=== PATIENT | female | born 1975 | race Caucasian/White ===

== ENCOUNTER 2016-04-19 10:31 | Inpatient (IN) | payer BC ==
--- NOTE | ~2016-04-19 | OP ---
Record Of Operation [address] [id number] [place]. [address] NAME: KRISTEN DILL : 79 STATUS : ADM IN PAT#: [id number] AGE: 40 ADM/REG DATE : 04/19/16 MR#: [id number] REPORT SERV DATE: 04/19/16 DICTATED BY: NEVAEH DOTY DATE: 04/19/16 REPORT STATUS : Draft TRANSCRIBED BY: MODL DATE: 04/19/16 DATE OF PROCEDURE: 04/19/2016 PREOPERATIVE DIAGNOSES: 1. Small bowel obstruction. 2. Peritonitis. POSTOPERATIVE DIAGNOSES: 1. Small bowel obstruction. 2. Peritonitis. 3. Cecal volvulus with ischemia. 4. Meckel's diverticulum. PROCEDURE: 1. Ileocecectomy with stapled [id number] ileocolic anastomosis. 2. Stapled resection of Meckel's diverticulum. SURGEONS: Nevaeh Doty M.D. CHIEF INFORMATICS OFFICER: Ceel. ANESTHESIA: General. ESTIMATED BLOOD LOSS: 50 mL. IV FLUIDS: 1 L. SPECIMEN: 1. Cecal volvulus. 2. Meckel's diverticulum. COMPLICATIONS: None. BRIEF HISTORY: Ms Dill is a 40-year-old woman who was transferred from [facility] with evidence of a small-bowel obstruction with possible closed loop and peritonitis. Exploratory laparotomy was recommended with bowel resection. Procedure with the risks including bleeding, infection, anastomotic leak, hernia formation, abscess were all explained. She agreed to proceed. DESCRIPTION OF PROCEDURE: After consent was obtained, she was taken to the operating room and placed in the supine position on the operating table. General endotracheal anesthesia administered. The abdomen was then prepped and draped in normal sterile fashion. Preoperative antibiotics were administered. SCDs were placed. Time-out was performed. We began the midline laparotomy incision using a 10 blade scalpel. Electrocautery was used to dissect through the subcutaneous tissues to the fascia. Fascia was incised and opened throughout the length of the incision. We inspected small intestine, it was dilated, but Record Of Operation [id number] [place]. [address] NAME: KRISTEN DILL : 79 STATUS : ADM IN PAT#: [id number] AGE: 40 ADM/REG DATE : 04/19/16 MR#: [id number] REPORT SERV DATE: 04/19/16 DICTATED BY: NEVAEH DOTY [place] DATE: 04/19/16 REPORT STATUS : Draft TRANSCRIBED BY: MODElenita DATE: 04/19/16 not frankly ischemic. We then palpated in the left upper quadrant and identified a large dilated loop of bowel. This was reduced into the field and was found to be a cecal volvulus with ischemia. It was not perforated. We had to manually reduce the volvulus in order to obtain appropriate visualization for resection. We gave her an amp of bicarb. We then made a window in the distal ilium just proximal to the area of ischemia and divided using a NIKI stapler. We then made a window at the proximal ascending colon just distal to the area of cecal volvulus and then divided this using a NIKI 75 stapler. We then used the ligature to divide the mesentery and passed the specimen off the field. We then ran the small bowel and identified Meckel diverticulum, which was not involved in this process. We elected to resect it by doing a parallel stapled excision and then oversewed the staple line using 2-0 silk sutures. We then created our anastomosis. We placed the bowel in a wyqb-ol-dzrw functional end-to-end configuration and placed stay sutures of 2-0 silk both proximally and distally. We placed bowel clamps and then towels for control of contamination. We removed both antimesenteric staple lines and placed a NIKI 75 stapler within both bowel lumens and fired the stapler marrying the two ends. We identified the internal staple line to ensure that there was no bleeding. We then approximated the common enterotomy with Allis clamps and closed this using a TA 60 stapler. We then oversewed our staple line using interrupted 2-0 silk sutures and then we closed our mesenteric defect using interrupted vxxtyi-ap-pyxze 2-0 silk sutures. Nice palpable anastomosis. We then replaced it into the abdomen and tucked into the right lower quadrant as well as the remaining portion of the bowel. We irrigated all four quadrants using sterile saline until clear. We replaced the omentum back over the top of the bowel and palpated the NG tube within the stomach. We then closed the fascia using interrupted #1 PDS sutures. Subcutaneous tissues were irrigated with sterile saline. Skin was closed using price. The abdomen was cleaned and sterile dressing was applied. The patient tolerated the procedure well. She was extubated in the operating room and sent to the recovery room in stable condition. WG/MODL Nevaeh Doty MD / [id number] CC: Nevaeh Doty MD
--- NOTE | ~2016-04-19 | HP ---
History And Physical [facility] [address] [place]. [address] NAME: KRISTEN DILL : 79 STATUS : ADM IN [facility]#: [id number] AGE: 40 ADM/REG DATE : 04/19/16 MR#: [id number] REPORT SERV DATE: 04/19/16 DICTATED BY: NEVAEH DOTY DATE: 04/19/16 REPORT STATUS : Draft TRANSCRIBED BY: MODL DATE: 04/19/16 DATE OF ADMISSION: 04/19/2016 CHIEF COMPLAINT: Severe abdominal pain and vomiting. HISTORY OF PRESENT ILLNESS: This is an otherwise healthy, 40-year-old female, who woke up at midnight with the urge to defecate. She had a bowel movement and then stated that she had severe onset of abdominal pain accompanied by severe nausea and then projectile emesis, which was intractable. The patient denies any fevers or other precipitating symptoms. She has never had prior similar symptoms, whatsoever. Again, her last normal bowel movement at midnight and has had progressive pain, which has been intractable to narcotic pain medications ever since. She presented to the emergency room at an outside hospital and was found to have a physical exam, labs as well as imaging consistent with a closed loop small bowel obstruction of unknown etiology and was transferred to [facility] for surgical evaluation. PAST MEDICAL HISTORY: Includes anxiety. PAST SURGICAL HISTORY: None. MEDICATIONS: Include vitamin D supplement and Xanax. ALLERGIES: NO KNOWN DRUG ALLERGIES. SOCIAL HISTORY: The patient is and has three young boys and otherwise denies any tobacco, alcohol, or recreational street drug use. REVIEW OF SYSTEMS: A comprehensive review of systems was performed and was negative except as noted in the HPI. PHYSICAL EXAMINATION: VITAL SIGNS: The patient is tachycardic but with a regular rhythm. Otherwise, her vital signs were stable. GENERAL: This is a well-developed, well-nourished female, appearing her stated age who appears to be in significant distress from the pain. She is lying in the bed and is somewhat sedated due to the amount of narcotic pain medication she received in outside hospital. HEENT: Normocephalic, atraumatic. Pupils are equal, round, reactive to light. Extraocular movements and cranial 2 through 12 are grossly intact. Her nares are patent and there is an NG tube in place in one of her nares. Her mucous membranes are dry. There is no obvious obstruction of her oropharynx. NECK: Supple. Trachea is midline. CARDIOVASCULAR: She is tachycardic but with a regular rhythm. No murmurs, rubs, or gallops. RESPIRATORY: Her lungs are clear to auscultation bilaterally. No rhonchi. No wheeze. ABDOMEN: Soft and diffusely tender to palpation with diffuse rebound consistent with History And Physical [address] [address] NAME: KRISTEN DILL : 79 STATUS : ADM IN PAT#: [id number] AGE: 40 ADM/REG DATE : 04/19/16 MR#: [id number] REPORT SERV DATE: 04/19/16 DICTATED BY: NEVAEH DOTY DATE: 04/19/16 REPORT STATUS : Draft TRANSCRIBED BY: ARIANNA DATE: 04/19/16 generalized peritonitis. I do not appreciate any masses, pulsatile or otherwise. EXTREMITIES: The patient is able to move all four of her extremities equally. NEUROLOGIC: She has no focal neurological defects. She does has 2+ bilateral radial as well as dorsalis pedis pulses, which are palpable. LABORATORY DATA: White blood cells 19.3, hemoglobin 13.5, hematocrit 39.7, platelets of 218. Sodium 138, potassium 3.6, chloride 100, CO2 19, BUN 10, creatinine 0.63, glucose of 177, albumin 4.4, total protein 7.4, alkaline phosphatase 47, AST 24, ALT 25, total bilirubin is 0.2. She has an anion gap of 22.6. There is no lactate but this is suggestive of possible elevated lactate. Lipase is 22, and a CRP is less than 0.4. CT performed at the outside hospital shows a decompressed stomach, as well as a decompressed colon, and a decompressed terminal ileum. There is a markedly distended loop of small bowel within the left upper quadrant measuring up to 10 cm that appears to be twisting on the mesenteric pedicle causing a closed loop obstruction. There is a considerable mesenteric edema in this area, but no pneumatosis intestinalis is noted. There is a small amount of dense free peritoneal fluid in the cul-de-sac measuring 7.5 x 5 cm. Otherwise, there are no clinically significant findings. ASSESSMENT AND PLAN: A 40-year-old female, appears to have a closed loop obstruction caused by twisting on the mesenteric pedicle of this loop of small bowel of unknown etiology. Regardless the patient currently has a surgical abdomen and will proceed to the operating room for exploratory laparotomy, possible bowel resection. Her was at the bedside, and I discussed with him in detail. Risks, benefits, and alternatives to surgery, including but not limited to, bleeding, infection, damage to the surrounding structures, possible hernia formation, possible leak at anastomosis. Also stated that she had no real alternatives to surgical intervention as this is the treatments available for the problems she has at this time. This patient was seen in conjunction with Dr. Doty, the attending who agrees with the plan. Additionally, the patient appears to be somewhat under resuscitated and we will continue this resuscitation process, so we will not hold her trip to the operating room, and this will be done concurrently with her operation DICTATED BY: Amelia Oakley MD SE/MODL Nevaeh oDty MD / [id number] CC: Nevaeh Doty MD
--- NOTE | ~2016-04-19 | DS ---
Discharge Summary [facility] [address] [place]. [address] NAME: KRISTEN DILL : 79 STATUS : DIS IN PAT#: [id number] AGE: 40 ADM/REG DATE : 04/19/16 MR#: [id number] REPORT SERV DATE: 05/01/16 DICTATED BY: NEVAEH DOTY DATE: 05/01/16 REPORT STATUS : Draft TRANSCRIBED BY: MODL DATE: 05/01/16 Data Collection from hospitalization DISCHARGE DIAGNOSES: 1. Small bowel obstruction. 2. Peritonitis. 3. Cecal volvulus with ischemia. 4. Meckel's diverticulum. 5. Anxiety. CONSULTATIONS: None. PROCEDURES PERFORMED: Ileocecectomy with stapled [id number]-hq-pgva ileocolic anastomosis, stapled resection of Meckel's diverticulum on 04/19/2016. PATHOLOGY: Ileum and cecum, ileocecectomy - ischemic injury secondary to cecal volvulus. Margins of resection are viable. A few benign lymph nodes were found. Small bowel diverticulum excision - Meckel's diverticulum. MEDICATIONS: Celexa 20 mg daily, Percocet 5/325 one to two tablets every four hours as needed, and vitamin D one capsule daily. CONDITION AT DISCHARGE: Stable. DISPOSITION: The patient was discharged home on a regular diet with activities as instructed. She would follow up with Dr. Nevaeh Doty on 04/29/2016 and 05/14/2016. HOSPITAL COURSE: This is a 40-year-old female who was transferred from [facility] with evidence of a small bowel obstruction with possible closed loop and peritonitis. Treatment options were discussed and it was elected to proceed with surgical intervention. She was admitted to the hospital at this time for further evaluation and treatment. Upon admission, she was taken to the operating room where she underwent the above-mentioned procedure. She tolerated this well, and there were no complications. On postop day #1, she did complain of some abdominal muscle spasms. She was not passing flatus. She tried to walk to the restroom, but had severe dizziness. She was able to use the bedside commode. NG tube remained in place. IV fluids were continued. Robaxin was started for muscle spasms. On 04/21/2016, she was able to get up and ambulate to the restroom. She had undergone one straight catheterization. Her T-max was 99.7. Her dressings were removed. Her incision was clean, dry, and intact. The NG tube remained in place. She was being given popsicles and ice. The LICENSED MORTICIAN continued. We encouraged her to ambulate in the [place]. On 04/22/2016, the NG tube was removed. She had no nausea. She did tolerate sips of clear liquids. She was getting up to take a shower. Over the next couple of days, discharge planning was performed. She was tolerating liquids. She was passing flatus. The LICENSED MORTICIAN was discontinued and she was placed on oral medications. On 04/24/2016, she did have a bowel movement. Her pathology results were benign. Her abdomen was soft. Her wound appeared clean. Discharge instructions were given. Due to her improved and stable condition, she was discharged home with the above-stated instructions. Discharge Summary [id number] [place]. [address] NAME: KRISTEN DILL : 79 STATUS : DIS IN PAT#: [id number] AGE: 40 ADM/REG DATE : 04/19/16 MR#: [id number] REPORT SERV DATE: 05/01/16 DICTATED BY: NEVAEH DOTY DATE: 05/01/16 REPORT STATUS : Draft TRANSCRIBED BY: ARIANNA DATE: 05/01/16 Information collected by: Mindy Ramon I submit the above information as my discharge summary. SOLE/ARIANNA Nevaeh Doty MD / [id number] CC: MD Gadiel De M.D.
[2016-04-19 13:02] LABS: BASOPHILS 0.1 %; BASOPHILS ABSOLUTE 0.02 10/3/uL (0.0-0.16); EOSINOPHILS 0 %; HEMOGLOBIN 14.9 g/dL (12.0-16.0); IMMATURE GRANULOCYTES 0.2 %; IMMATURE GRANULOCYTES ABSOLUTE 0.04 10/3/uL (0.0-0.11); LYMPHOCYTES 5.6 %; LYMPHOCYTES ABSOLUTE 0.92 10/3/uL (0.67-4.30); MEAN CORPUS HGB CONC 33.9 g/dL (32.0-36.0); MEAN CORPUSCULAR HEMOGLOB 29.5 pg (26.0-34.0); MEAN CORPUSCULAR VOLUME 87.1 fL (80-100); MEAN PLATELET VOLUME 11.5 fL (9.2-13.0); MONOCYTES 2.6 %; MONOCYTES ABSOLUTE 0.42 10/3/uL (0.21-1.20); NEUTROPHILS 91.5 %; NEUTROPHILS ABSOLUTE 14.95 10/3/uL (2.02-8.40); PLATELET COUNT 185 10/3/uL (150-400); RBC DISTRIBUTION WIDTH 12.6 % (12.0-16.0); RED CELL COUNT 5.05 10/6/uL (4.0-5.6); WHITE BLOOD CELLS 16.4 10/3/uL (4.5-10.5)
[2016-04-19 13:03] LABS: MANUAL DIFF NO %
[2016-04-19 13:12] LABS: INTERNATIONAL NORMAL RATI 1.1 UNITS (-); PARTIAL THROMBO TIME 25.3 SEC (22.5-37.2); PROTIME (NOT ORD) 13.8 SEC (12.0-14.5)
[2016-04-19 13:15] LABS: BUN (BLOOD UREA NITROGEN) 9 MG/DL (6-23); CALCIUM, SERUM 8.6 MG/DL (8.5-10.4); CHLORIDE, SERUM 107 MMOL/L (96-112); CO2 (CARBON DIOXIDE) 20 MMOL/L (24-34); GFR AFRICAN AMERICAN 108 ML/MIN (>=60); GFR NON AFRICAN AMERICAN 94 ML/MIN (>=60); GLUCOSE, SERUM 128 MG/DL (60-99); POTASSIUM, SERUM 4.6 MMOL/L (3.5-5.3); SODIUM, SERUM 139 MMOL/L (135-148)
[2016-04-19] MEDS ORDERED: CELEXA20 PO (17:01)
[2016-04-19] MEDS ORDERED: VITAMIN D PO (17:01)
[2016-04-20 05:24] LABS: BASOPHILS 0.1 %; BASOPHILS ABSOLUTE 0.02 10/3/uL (0.0-0.16); EOSINOPHILS 0 %; HEMATOCRIT 40.8 % (36.0-48.0); HEMOGLOBIN 13.8 g/dL (12.0-16.0); IMMATURE GRANULOCYTES 0.2 %; IMMATURE GRANULOCYTES ABSOLUTE 0.03 10/3/uL (0.0-0.11); LYMPHOCYTES 5.7 %; LYMPHOCYTES ABSOLUTE 0.78 10/3/uL (0.67-4.30); MEAN CORPUS HGB CONC 33.8 g/dL (32.0-36.0); MEAN CORPUSCULAR HEMOGLOB 30.3 pg (26.0-34.0); MEAN CORPUSCULAR VOLUME 89.5 fL (80-100); MEAN PLATELET VOLUME 11.6 fL (9.2-13.0); MONOCYTES ABSOLUTE 1.24 10/3/uL (0.21-1.20); NEUTROPHILS ABSOLUTE 11.64 10/3/uL (2.02-8.40); PLATELET COUNT 197 10/3/uL (150-400); RBC DISTRIBUTION WIDTH 12.8 % (12.0-16.0); RED CELL COUNT 4.56 10/6/uL (4.0-5.6); WHITE BLOOD CELLS 13.7 10/3/uL (4.5-10.5)
[2016-04-20 05:36] LABS: MANUAL DIFF NO %
[2016-04-20 05:37] LABS: BUN (BLOOD UREA NITROGEN) 9 MG/DL (6-23); CALCIUM, SERUM 8.3 MG/DL (8.5-10.4); CHLORIDE, SERUM 104 MMOL/L (96-112); CREATININE 0.85 MG/DL (0.55-1.02); GFR AFRICAN AMERICAN 101 ML/MIN (>=60); GFR NON AFRICAN AMERICAN 87 ML/MIN (>=60); GLUCOSE, SERUM 108 MG/DL (60-99); POTASSIUM, SERUM 4.4 MMOL/L (3.5-5.3); SODIUM, SERUM 140 MMOL/L (135-148)
[2016-04-20 05:39] LABS: CO2 (CARBON DIOXIDE) 30 MMOL/L (24-34)
[2016-04-21 05:21] LABS: BUN (BLOOD UREA NITROGEN) 7 MG/DL (6-23); CALCIUM, SERUM 7.8 MG/DL (8.5-10.4); CHLORIDE, SERUM 104 MMOL/L (96-112); CO2 (CARBON DIOXIDE) 33 MMOL/L (24-34); CREATININE 0.57 MG/DL (0.55-1.02); GFR AFRICAN AMERICAN 136 ML/MIN (>=60); GFR NON AFRICAN AMERICAN 118 ML/MIN (>=60); GLUCOSE, SERUM 94 MG/DL (60-99); POTASSIUM, SERUM 3.7 MMOL/L (3.5-5.3); SODIUM, SERUM 142 MMOL/L (135-148)
[2016-04-22 05:55] LABS: BUN (BLOOD UREA NITROGEN) 4 MG/DL (6-23); CALCIUM, SERUM 8.3 MG/DL (8.5-10.4); CHLORIDE, SERUM 106 MMOL/L (96-112); CO2 (CARBON DIOXIDE) 29 MMOL/L (24-34); CREATININE 0.41 MG/DL (0.55-1.02); GFR AFRICAN AMERICAN 152 ML/MIN (>=60); GFR NON AFRICAN AMERICAN 131 ML/MIN (>=60); GLUCOSE, SERUM 96 MG/DL (60-99); POTASSIUM, SERUM 3.6 MMOL/L (3.5-5.3); SODIUM, SERUM 143 MMOL/L (135-148)
[2016-04-24] MEDS ORDERED: PCET PO (09:28)
== END 2016-04-24 11:16 | disposition home or self-care (01) | DRG 329 ==
LOC: 4SO 10:31
PROVIDERS: Surgery
PROC: 0DB80ZZ Excision of Small Intestine, Open Approach (ICD-10-PCS; 2016-04-19)
PROC: 0DTH0ZZ Resection of Cecum, Open Approach (ICD-10-PCS; principal; 2016-04-19 12:45)
DX: K56.60 Unspecified intestinal obstruction (principal); K65.9 Peritonitis, unspecified; F41.9 Anxiety disorder, unspecified; R00.0 Tachycardia, unspecified; Q43.0 Meckel's diverticulum (displaced) (hypertrophic); K56.2 Volvulus
CPT/HCPCS: 74000; 80048; 84703; 85025; 85610; 85730; 88305; 88307; A9270-GY; C9113; J0330; J0694; J2370; J2405; J2710; J2795; J2800; J3010